=== PATIENT | female | born 1935 | race Caucasian/White ===

== ENCOUNTER → 2016-11-23 | Outpatient (CLI) | payer MEDICARE, OTHER ==
[~2016-11-23] MED LIST: AMBIEN5 MG; ASPIR 8181 MG PO; CEFTIN250 MG PO; HUMULIN N100 UNIT/1 SC; IMDUR ER TAB 6060 MG PO; LANTUS100 UNIT/1 SC; LIPITOR TAB 2020 MG PO; LISINOPRIL10 MG PO; METFORMIN HCL500 MG PO; METOPROLOL SUCC50 MG PO; NOVOLOG 10100 UNITS/; PLAVIX 75 MG TA75 MG PO; RANEXA1000 MG PO; RANEXA500 MG PO
== END ==
LOC: RAD 09:27
DX: J39.8 Other specified diseases of upper respiratory tract (principal); R13.10 Dysphagia, unspecified
CPT/HCPCS: 74230; 92611-GN

== ENCOUNTER 2021-03-05 09:00 | Emergency (ER) | payer MEDICARE, OTHER ==
[~2021-03-05 09:00] MED LIST changes: +COMPAZINE 10MG10 MG PO; +CRESTOR20 MG PO; +GLIMEPIRIDE4 MG PO; +HYDROCODON-ACE1 EAC6 PO; +IMODIUM A-1 MG/7.5 M PO; -LISINOPRIL10 MG PO; +LISINOPRIL20 MG PO; +LOPRESSOR 25 MG25 MG PO; +LOTRIMIN CREAM15 GM TOP; +NITROSTAT0.4 MG SL; +NYSTOP60 GM EXT; +OMNICEF 300 MG300 MG PO; +ONDANSETRON HCL8 MG PO; +PRESERVISION A1 EACH PO; -RANEXA1000 MG PO; +SENNA LAXATIVE8.6 MG PO; +THERAGRAN M TAB1 EA PO; +VITAMIN D325 MCG PO
[2021-03-05 10:11] LABS: HEMOGLOBIN 11.6 gm/dl (12.3-15.3); RED BLOOD COUNT 3.35 M/UL (4.00-5.10); WHITE BLOOD COUNT 7.3 K/UL (4.5-11.0)
[2021-03-05 10:35] LABS: BUN/CREATININE RATIO 17 (0-10)
[2021-03-05] MEDS ORDERED: MACROBID 100 M100 MG PO (14:03)
== END 2021-03-05 18:30 | disposition home or self-care (01) ==
LOC: ER1 09:00
PROVIDERS: Nurse Practitioner
DX: S22.089A Unspecified fracture of T11-T12 vertebra, initial encounter for closed fracture (principal); N39.0 Urinary tract infection, site not specified; E11.9 Type 2 diabetes mellitus without complications; I10 Essential (primary) hypertension; Z88.0 Allergy status to penicillin; Z85.038 Personal history of other malignant neoplasm of large intestine; W01.0XXA Fall on same level from slipping, tripping and stumbling without subsequent striking against object, initial encounter
CPT/HCPCS: 70450; 72125; 72128; 72131; 73522; 80053; 81001; 82550; 82553; 83605; 83690; 83874; 84484; 85025; 87077; 87086; 87186; 93005; 99284

== ENCOUNTER 2021-03-10 10:34 | Emergency (ER) | payer MEDICARE ==
[~2021-03-10 10:34] MED LIST changes: +MACROBID 100 M100 MG PO
[2021-03-10 12:44] LABS: HEMOGLOBIN 10.8 gm/dl (12.3-15.3); RED BLOOD COUNT 3.14 M/UL (4.00-5.10); WHITE BLOOD COUNT 6.9 K/UL (4.5-11.0)
[2021-03-10] MEDS ORDERED: DULCOLAX5 MG PO (14:54)
[2021-03-10] MEDS ORDERED: MIRALAX 119 GR119 GM PO (14:54)
== END 2021-03-10 18:42 | disposition home or self-care (01) ==
LOC: ER1 10:34
PROVIDERS: Physician Assistant
DX: K59.00 Constipation, unspecified (principal); E11.9 Type 2 diabetes mellitus without complications; I10 Essential (primary) hypertension; Z90.49 Acquired absence of other specified parts of digestive tract
CPT/HCPCS: 80053; 85025; 99284

== ENCOUNTER → 2021-04-02 | Outpatient (CLI) | payer MEDICARE, OTHER ==
[~2021-04-02] MED LIST changes: +DULCOLAX5 MG PO; +LISINOPRIL2.5 MG PO; -LISINOPRIL20 MG PO; +MIRALAX 119 GR119 GM PO
== END ==
LOC: MRI 08:31
DX: G93.89 Other specified disorders of brain (principal)
CPT/HCPCS: 36415; 70553; 82565; A9577

== ENCOUNTER 2021-05-05 01:48 | Inpatient (IN) | payer MEDICARE, OTHER ==
[~2021-05-05] VITALS: Ht 162.6 cm; Wt 55.4 kg
[~2021-05-05 01:48] MED LIST changes: -LISINOPRIL2.5 MG PO; +LISINOPRIL20 MG PO
[2021-05-05 02:37] LABS: HEMOGLOBIN 11.5 gm/dl (12.3-15.3); RED BLOOD COUNT 3.44 M/UL (4.00-5.10); WHITE BLOOD COUNT 7.4 K/UL (4.5-11.0)
[2021-05-05 03:46] LABS: BUN/CREATININE RATIO 26 (0-10)
[2021-05-05] MEDS ORDERED: MIRALAX17 GM PO (11:12)
[2021-05-05] MEDS ORDERED: VOLTAREN ARTHRI20 GM TP (11:13)
[2021-05-05] MEDS ORDERED: FERROUS SULFAT325 M2 PO (11:14)
[2021-05-05] MEDS ORDERED: VITAMIN B-121000 MCG PO (11:15)
[2021-05-05] MEDS ORDERED: FOLIC ACID0.4 MG PO (11:15)
[2021-05-05] MEDS ORDERED: SEROQUEL TAB 2525 MG PO (11:17)
[2021-05-05] MEDS ORDERED: AMBIEN10 MG PO (11:18)
[2021-05-05] MEDS ORDERED: AMARYL4 MG PO (11:19)
[2021-05-05] MEDS ORDERED: METFORMIN HCL500 MG PO (11:20)
[2021-05-05] MEDS ORDERED: CRESTOR20 MG PO (11:22)
--- NOTE | 2021-05-06 08:07 | NUR ---
PT BLOOD SUGAR CHECKED THIS AM AT 0745. LEVEL AT 38. ONE AMP OF D50 GIVEN PER IV. PATIENT TOLERATED WELL. RECHECKED BLOOD SUGAR AT 0805 AM. PT BLOOD SUGAR IS AT 208. WILL NOT GIVE SLIDING SCALE INSULIN, WILL CONTINUE TO MONITOR
[2021-05-07 10:35] LABS: BUN/CREATININE RATIO 9 (0-10)
--- NOTE | 2021-05-07 10:55 | NUR ---
CALLED MD VINES ABOUT PATIENT REQUESTED MEDICATION. SHE REORDERED HER SEROQUEL AND HYDROCODONE. INFORM MD PATIENT POTASSIUM IS 3.2, SHE ORDERED POTASSIUM PROTOCOL. REPEATED VERBAL TELEPHONE ORDER
[2021-05-09] MEDS ORDERED: AUGMENTIN 500-500 MG PO (11:02)
== END 2021-05-09 13:03 | disposition home or self-care (01) | DRG 871 ==
LOC: ER1 01:48 → PROG CARE 07:14 → CDU 07:14 → PROG CARE 20:17
PROVIDERS: Family Medicine; ADMIT Internal Medicine
DX: A41.9 Sepsis, unspecified organism (principal); J96.01 Acute respiratory failure with hypoxia; J69.0 Pneumonitis due to inhalation of food and vomit; Z20.822 Contact with and (suspected) exposure to COVID-19; G93.41 Metabolic encephalopathy; J15.6 Pneumonia due to other Gram-negative bacteria; I21.A1 Myocardial infarction type 2; E44.0 Moderate protein-calorie malnutrition; C21.8 Malignant neoplasm of overlapping sites of rectum, anus and anal canal; M81.0 Age-related osteoporosis without current pathological fracture; I10 Essential (primary) hypertension; E78.5 Hyperlipidemia, unspecified; E11.9 Type 2 diabetes mellitus without complications; I25.10 Atherosclerotic heart disease of native coronary artery without angina pectoris; Z95.1 Presence of aortocoronary bypass graft; Z86.69 Personal history of other diseases of the nervous system and sense organs; Z79.01 Long term (current) use of anticoagulants; Z79.82 Long term (current) use of aspirin; Z98.42 Cataract extraction status, left eye; Z98.41 Cataract extraction status, right eye; Z83.3 Family history of diabetes mellitus; Z68.23 Body mass index [BMI] 23.0-23.9, adult; Z87.01 Personal history of pneumonia (recurrent)
CPT/HCPCS: 36415; 36600; 70450; 71045; 71250; 80048; 80053; 81001; 82550; 82553; 82607; 82746; 82803; 82962; 83605; 83735; 83874; 83880; 84100; 84439; 84443; 84484; 85025; 85610; 87040; 87086; 93005; 96374; 97116-GP-CQ; 97162; 97530-GP-CQ; 99285; J0696; J1650; J2543; J7030; U0002

== ENCOUNTER 2021-07-18 09:17 | Inpatient (IN) | payer MEDICARE, OTHER ==
[~2021-07-18 09:17] MED LIST changes: +AMARYL4 MG PO; +AMBIEN10 MG PO; +AUGMENTIN 500-500 MG PO; +FERROUS SULFAT325 M2 PO; +FOLIC ACID0.4 MG PO; -LISINOPRIL20 MG PO; +LISINOPRIL5 MG PO; +MIRALAX17 GM PO; +SEROQUEL TAB 2525 MG PO; +VITAMIN B-121000 MCG PO; +VOLTAREN ARTHRI20 GM TP
[2021-07-18 09:44] LABS: HEMOGLOBIN 12.1 gm/dl (12.3-15.3); RED BLOOD COUNT 3.55 M/UL (4.00-5.10); WHITE BLOOD COUNT 13.7 K/UL (4.5-11.0)
[2021-07-18 10:10] LABS: BUN/CREATININE RATIO 28 (0-10)
[2021-07-18] MEDS ORDERED: QUETIAPINE FUMA25 MG PO (12:19)
== END 2021-07-18 13:25 | disposition expired | DRG 64 ==
LOC: ER1 09:17 → CDU 11:39
PROVIDERS: Emergency Medicine; ADMIT Internal Medicine
PROC: 5A1935Z Respiratory Ventilation, Less than 24 Consecutive Hours (ICD-10-PCS; principal; 2021-07-18)
PROC: 0BH17EZ Insertion of Endotracheal Airway into Trachea, Via Natural or Artificial Opening (ICD-10-PCS; 2021-07-18)
DX: I62.9 Nontraumatic intracranial hemorrhage, unspecified (principal); J96.01 Acute respiratory failure with hypoxia; G93.6 Cerebral edema; G93.5 Compression of brain; E44.0 Moderate protein-calorie malnutrition; I25.10 Atherosclerotic heart disease of native coronary artery without angina pectoris; M81.0 Age-related osteoporosis without current pathological fracture; E78.5 Hyperlipidemia, unspecified; R40.20 Unspecified coma; I10 Essential (primary) hypertension; E11.9 Type 2 diabetes mellitus without complications; G70.00 Myasthenia gravis without (acute) exacerbation; R13.10 Dysphagia, unspecified; H26.9 Unspecified cataract; Z20.822 Contact with and (suspected) exposure to COVID-19; J38.00 Paralysis of vocal cords and larynx, unspecified; R40.2433 Glasgow coma scale score 3-8, at hospital admission; Z96.649 Presence of unspecified artificial hip joint; Z95.1 Presence of aortocoronary bypass graft; Z98.49 Cataract extraction status, unspecified eye; Z98.890 Other specified postprocedural states; Z93.1 Gastrostomy status; Z85.048 Personal history of other malignant neoplasm of rectum, rectosigmoid junction, and anus; Z51.5 Encounter for palliative care; Z90.89 Acquired absence of other organs
CPT/HCPCS: 31500; 36600; 51702; 70450; 71045; 80053; 81001; 82550; 82553; 82803; 83605; 83874; 83880; 84484; 85025; 85610; 85730; 86850; 86870; 86900; 86901; 87040; 93005; 94002; 96374; 99285; J2060; J2250; J2270; J2543; U0002